=== PATIENT | male | born 1990 | race Caucasian/White ===

== ENCOUNTER 2017-02-09 09:41 | Emergency (ER) | payer OTHER ==
[~2017-02-09] VITALS: Ht 182.9 cm; Wt 105.2 kg
[~2017-02-09 09:41] MED LIST: NOHOMEMEDS
[2017-02-09] MEDS ORDERED: LIDODERM 5% P1 PATCH TD (12:10)
[2017-02-09] MEDS ORDERED: FLEXERIL10 MG PO (12:10)
[2017-02-09] MEDS ORDERED: NAPROSYN500 MG PO (12:10)
[2017-02-09 12:31] VITALS: BP 102/86
== END 2017-02-09 12:31 | disposition home or self-care (01) ==
LOC: EME 09:41
DX: M94.0 Chondrocostal junction syndrome [Tietze] (principal); S29.9XXA Unspecified injury of thorax, initial encounter; X50.9XXA Other and unspecified overexertion or strenuous movements or postures, initial encounter; F17.200 Nicotine dependence, unspecified, uncomplicated
CPT/HCPCS: 71101; 99281; 99284